=== PATIENT | male | born 1995 | race Caucasian/White ===

== ENCOUNTER 2019-03-11 19:07 | Emergency (ER) | payer MEDICAID ==
[~2019-03-11] VITALS: Ht 177.8 cm; Wt 63.0 kg
[2019-03-11 23:03] VITALS: BP 131/93
== END 2019-03-11 23:03 | disposition home or self-care (01) ==
LOC: ED 19:07
DX: S31.153A Open bite of abdominal wall, right lower quadrant without penetration into peritoneal cavity, initial encounter (principal); W54.0XXA Bitten by dog, initial encounter; Y93.89 Activity, other specified; Y92.89 Other specified places as the place of occurrence of the external cause; Y99.8 Other external cause status
CPT/HCPCS: 90715

== ENCOUNTER 2019-05-16 15:58 | Emergency (ER) | payer MEDICAID ==
[~2019-05-16] VITALS: Ht 177.8 cm; Wt 61.2 kg
[2019-05-16 16:06] VITALS: Ht 177.8 cm; Wt 61.2 kg
[2019-05-16 18:32] LABS: BASOPHIL % 0.4 % (0-2); PLATELET COUNT 239 x10^3mcL (130-400); RED CELL DISTRIBUTION WIDTH 13.5 % (11.5-14.5)
[2019-05-16 18:52] LABS: CALCIUM 8.2 mg/dL (8.5-10.1); CARBON DIOXIDE 29.1 mmol/L (21-32); CHLORIDE SERUM 100 mmol/L (98-107); CREATININE SERUM 0.9 mg/dL (0.7-1.3); GFR1 > 60 mL/min; GLUCOSE SERUM 88 mg/dL (74-106); POTASSIUM SERUM 3.2 mmol/L (3.5-5.1); SODIUM SERUM 137 mmol/L (136-145)
[2019-05-16 18:57] LABS: ALBUMIN 3.6 g/dL (3.4-5.0); ALKALINE PHOSPHATASE 87 U/L (46-116); ALT/SGPT 43 U/L (16-63); AST/SGOT 49 U/L (15-37); BILIRUBIN TOTAL 0.4 mg/dL (0.20-1.00); LIPASE 51 IU/L (73-393)
[2019-05-16 18:58] LABS: TOTAL PROTEIN, SERUM 8.6 g/dL (6.4-8.2)
[2019-05-16 19:39] VITALS: BP 124/89
== END 2019-05-16 19:39 | disposition home or self-care (01) ==
LOC: ED 15:58
PROVIDERS: Emergency Medicine
DX: A08.4 Viral intestinal infection, unspecified (principal)
CPT/HCPCS: J2270; J2405; J7030

== ENCOUNTER → 2019-07-30 | Outpatient (CLI) | payer MEDICAID ==
[~2019-07-30] MED LIST: ISENTRESS400 MG PO; LEVAQUIN500 M1 PO; TRUVADA 200 MG1 EACH PO; [UNRECOGNIZED DRUG - CODE] IM
== END | disposition home or self-care (01) ==
LOC: LB 12:24
DX: K52.9 Noninfective gastroenteritis and colitis, unspecified (principal)
CPT/HCPCS: 87046; 87046-59

== ENCOUNTER 2019-07-31 21:15 | Emergency (ER) | payer MEDICAID ==
[~2019-07-31] VITALS: Ht 177.8 cm; Wt 61.7 kg
[2019-07-31 21:30] VITALS: Ht 177.8 cm; Wt 61.7 kg
[2019-07-31 22:14] LABS: BASOPHIL % 0.4 % (0-2); PLATELET COUNT 396 x10^3mcL (130-400)
[2019-07-31 22:15] LABS: RED CELL DISTRIBUTION WIDTH 15.4 % (11.5-14.5)
[2019-07-31 22:35] LABS: CARBON DIOXIDE 31.4 mmol/L (21-32); CHLORIDE SERUM 102 mmol/L (98-107); CREATININE SERUM 0.8 mg/dL (0.7-1.3); GFR1 > 60 mL/min; GLUCOSE SERUM 112 mg/dL (74-106); POTASSIUM SERUM 4.1 mmol/L (3.5-5.1); SODIUM SERUM 138 mmol/L (136-145)
[2019-07-31 22:40] LABS: ALBUMIN 3.9 g/dL (3.4-5.0); ALKALINE PHOSPHATASE 90 U/L (46-116); ALT/SGPT 56 U/L (16-63); AST/SGOT 30 U/L (15-37); BILIRUBIN TOTAL 0.3 mg/dL (0.20-1.00); LIPASE 97 IU/L (73-393); TOTAL PROTEIN, SERUM 7.9 g/dL (6.4-8.2)
[2019-08-01 01:10] VITALS: BP 122/78
== END 2019-08-01 01:10 | disposition home or self-care (01) ==
LOC: ED 21:15
PROVIDERS: Emergency Medicine
DX: K62.5 Hemorrhage of anus and rectum (principal)
CPT/HCPCS: 36415

== ENCOUNTER 2020-09-28 22:13 | Emergency (ER) | payer MEDICAID ==
[~2020-09-28] VITALS: Ht 177.8 cm; Wt 66.5 kg
[2020-09-28 22:27] VITALS: Ht 177.8 cm; Wt 66.5 kg
[2020-09-28 23:20] VITALS: BP 124/85
== END 2020-09-28 23:10 | disposition home or self-care (01) ==
LOC: ED 22:13
DX: N48.89 Other specified disorders of penis (principal); F15.20 Other stimulant dependence, uncomplicated
CPT/HCPCS: 87491; 87591